=== PATIENT | male | born 1980 | race Caucasian/White ===

== ENCOUNTER 2019-05-12 03:13 | Emergency (ER) | payer SELFPAY ==
[2019-05-12 03:25] VITALS: BP 163/111; PULSE 61
[2019-05-12] MEDS ORDERED: Ketorolac 60 MG/2 ML SDV IM ONE (03:39)
--- NOTE | 2019-05-12 03:44 | EDM.PDOC ---
ED HPI GENERAL MEDICAL PROBLEM - General Chief Complaint: ENT Problem Stated Complaint: tooth pain Time Seen by Provider: 05/12/19 03:23 Source of Information: Reports: Patient History Limitations: Reports: No Limitations - History of Present Illness INITIAL COMMENTS - FREE TEXT/NARRATIVE: This is a 39-year-old male. Onset of tooth pain last week. He has gotten to the point where she was having a hard time tolerating it so he went to the walk-in clinic was given a shot he believes of Toradol and placed on amoxicillin. He states when he takes the amoxicillin would Tuesday make his teeth itch. The pain in his right lower jaw now seems to be radiating up into his right ear and he is having a hard time sleeping so he comes to the ER for evaluation. He states he has not appointment with to see the dentist on Tuesday. He denies any fever or chills he denies any facial swelling. He's had no nausea and vomiting. He has been taking ibuprofen and Aleve and it seems to help a little bit but not enough for him to sleep. Right Lower Tooth/Teeth Pain Score (Numeric/FACES): 10 - Related Data Allergies Allergy/AdvReac Type Severity Reaction Status Date / Time No Known Allergies Allergy Verified 11/02/15 19:54 Home Meds: Home Meds Amoxicillin 500 mg PO TID #30 capsule 11/02/15 [Rx] Ketorolac [Toradol] 10 mg PO Q6H PRN #20 tab 05/12/19 [Rx] Past Medical History - Past Health History Medical/Surgical History: Denies Medical/Surgical History Social & Family History - Tobacco Use Smoking Status *Q: Never Smoker - Caffeine Use Caffeine Use: Reports: Soda - Recreational Drug Use Recreational Drug Use: Yes ED ROS ENT - Review of Systems Review Of Systems: See Below Constitutional: Denies: Fever, Chills HEENT: Reports: Dental Pain, Ear Pain Respiratory: Reports: No Symptoms Cardiovascular: Reports: No Symptoms Endocrine: Reports: No Symptoms GI/Abdominal: Reports: No Symptoms : Reports: No Symptoms Musculoskeletal: Reports: No Symptoms Skin: Reports: No Symptoms Neurological: Reports: No Symptoms Psychiatric: Reports: No Symptoms Hematologic/Lymphatic: Reports: No Symptoms ED EXAM, ENT - Physical Exam Exam: See Below Exam Limited By: No Limitations General Appearance: Alert, WD/WN, No Apparent Distress Eye Exam: Bilateral Eye: Normal Inspection Ears: Normal External Exam, Normal Canal, Normal TMs Nose: Normal Inspection Mouth/Throat: Other (In the right lower jaw molar second to the last has a chip and discoloration of the tooth that is the tooth that is hurting him, there is no soft tissue swelling there is no gum swelling noted) Head: Normocephalic Neck: Supple, Non-Tender Respiratory/Chest: No Respiratory Distress Back: Full Range of Motion Extremities: Normal Inspection, Normal Range of Motion Neurological: Alert, Oriented Psychiatric: Normal Affect, Normal Mood Skin: Warm, Dry Course - Vital Signs Last Recorded V/S: Last Vital Signs Temp 98.5 F 05/12/19 03:19 Pulse 61 05/12/19 03:19 Resp 20 05/12/19 03:19 BP 163/111 H 05/12/19 03:19 Pulse Ox 95 05/12/19 03:19 - Orders/Labs/Meds Orders: Active Orders 24 hr Category Date Time Status Ketorolac [Toradol] Med 05/12/19 03:39 Once 60 mg IM ONETIME ONE - Re-Assessments/Exams Free Text/Narrative Re-Assessment/Exam: 05/12/19 03:42 I spoke to the patient regarding continuing his amoxicillin. I'll put him on some Toradol pills to help with the pain and he is to make sure to follow up with his dentist for repair of the tooth on Tuesday. Departure - Departure Time of Disposition: 03:42 Disposition: Home, Self-Care 01 Condition: Good Clinical Impression: Dental infection, Pain, dental - Discharge Information *PRESCRIPTION DRUG MONITORING PROGRAM REVIEWED*: Not Applicable *COPY OF PRESCRIPTION DRUG MONITORING REPORT IN PATIENT SATYA: Not Applicable Prescriptions: Ketorolac [Toradol] 10 mg PO Q6H PRN #20 tab PRN Reason: Pain Additional Instructions: Continue with the amoxicillin, take the Toradol as needed for the pain and inflammation, do not take Toradol and ibuprofen together, you may continue taking the Aleve 2 tablets twice a day as long as you don't take them together with the Toradol and always have some sort of food in your stomach when you take them, follow up with your dentist on Tuesday for repair of your tooth, return to the ER if needed - My Orders Last 24 Hours: My Active Orders 05/12/19 03:39 Ketorolac [Toradol] 60 mg IM ONETIME ONE - Assessment/Plan Last 24 Hours: My Active Orders 05/12/19 03:39 Ketorolac [Toradol] 60 mg IM ONETIME ONE
== END 2019-05-12 04:00 | disposition home or self-care (01) ==
LOC: JD.ED 03:13
DX: K04.7 Periapical abscess without sinus (principal)
CPT/HCPCS: 96372; 99282; J1885